=== PATIENT | male | born 1965 | race Caucasian/White ===

== ENCOUNTER 2016-11-17 14:56 | Emergency (ER) | payer OTHER ==
[~2016-11-17] VITALS: Ht 180.3 cm; Wt 91.6 kg
[2016-11-17 15:01] VITALS: BP 157/98
--- NOTE | 2016-11-17 15:05 | NUR ---
Patient ambulated to bed 5 with family. RN evaluating patient at bedside.
--- NOTE | 2016-11-17 15:13 | NUR ---
PT CAME TO ER W/C/O KNEE PAIN, SWELLING X 4 DAYS---UPON GETTING OFF KNEES PT FELT A POP.PAIN SCALE OF 9/10;NON RADIATING;DENIES NUMBNESS/TINGLING SENSATION;DENIES CP/SOB/N/V/F AT THIS TIME;HX HTN, ASTHMA;AAOX4;NEEDS ATTENDED;SAFETY MEASURES DONE;HOB ELEVATED;MD MADE AWARE OF PT'S CONDITION.
--- NOTE | 2016-11-17 15:46 | NUR ---
Patient discharged with v/s stable. Written and verbal after care instructions given and explained.Patient alert, oriented and verbalized understanding of instructions. Ambulatory with steady gait. All questions addressed prior to discharge. ID band removed. Patient advised to follow up with PMD. Rx of TRAMADOL given. Patient educated on indication of medication including possible reaction and side effects. Opportunity to ask questions provided and answered.
[2016-11-17 15:47] VITALS: BP 145/96
== END 2016-11-17 15:46 | disposition home or self-care (01) ==
LOC: MED 14:56
DX: S83.91XA Sprain of unspecified site of right knee, initial encounter (principal); J45.909 Unspecified asthma, uncomplicated; I10 Essential (primary) hypertension; X58.XXXA Exposure to other specified factors, initial encounter; Y93.89 Activity, other specified; Y92.89 Other specified places as the place of occurrence of the external cause; Y99.8 Other external cause status
CPT/HCPCS: 29505; 73562; 99284; Q0092